=== PATIENT | male | born 1965 | race Caucasian/White ===

== ENCOUNTER 2020-10-19 18:43 | Emergency (ER) | payer SELFPAY ==
[~2020-10-19] VITALS: Ht 182.9 cm; Wt 115.2 kg
[2020-10-19 19:45] VITALS: BP 152/98
[2020-10-19] MEDS ORDERED: LORAZEPAM 1 MG TABLET ONE (20:49)
[2020-10-19] MEDS ORDERED: LORAZEPAM 1 MG TABLET PO ONE (21:00)
== END 2020-10-19 20:55 | disposition home or self-care (01) ==
LOC: ER 18:45
DX: F10.239 Alcohol dependence with withdrawal, unspecified (principal); F32.9 Major depressive disorder, single episode, unspecified; F41.9 Anxiety disorder, unspecified; F17.200 Nicotine dependence, unspecified, uncomplicated; Y90.9 Presence of alcohol in blood, level not specified

== ENCOUNTER 2020-10-21 17:47 | Emergency (ER) | payer OTHER ==
[~2020-10-21] VITALS: Ht 182.9 cm; Wt 115.2 kg
--- NOTE | 2020-10-21 18:00 | NUR ---
FROM [facility] C/O EPISODE OF HIGH BP 172/109 AROUND 4PM. ALERT AND ORIENTED X4. DENIES PAIN. RESPIRATION REGULAR AND UNLABORED. ATTACHED ON A MONITOR. WILL CONTINUE TO MONITOR THE PATINET.
[2020-10-21 18:25] VITALS: BP 141/86
--- NOTE | 2020-10-21 18:25 | NUR ---
Patient discharged to home in stable condition. Written and verbal after care instructions given. Patient verbalizes understanding of instruction. The patient left ER in stable condition.
== END 2020-10-21 18:26 | disposition home or self-care (01) ==
LOC: ER 17:53
DX: I10 Essential (primary) hypertension (principal); F32.9 Major depressive disorder, single episode, unspecified; F41.9 Anxiety disorder, unspecified